=== PATIENT | male | born 1935 | race Caucasian/White ===

== ENCOUNTER 2018-08-15 11:19 | Emergency (ER) | payer OTHER ==
[2018-08-15] MEDS ORDERED: NS 500 ML IV ONE (11:40)
--- NOTE | 2018-08-15 11:44 | EDPHY ---
H & P Time Seen by Provider: 08/15/18 11:29 HPI/ROS: CHIEF COMPLAINT: Weakness HISTORY OF PRESENT ILLNESS: Patient is an 83-year-old male with a history of previous CVA and seizure disorder who presents emergency department after feeling weak. Of note, the patient lost his in February. Since that time he has been feeling depressed. Patient went for a walk this morning and ate breakfast. Upon returning home in sitting in his chair he was unable to get up. He felt weak. He denies any chest pain shortness of breath. He had no dyspnea on exertion. No leg pain or swelling. No recent fevers or chills. No recent illness. REVIEW OF SYSTEMS: 10 systems were reveiwed and are negative with the exception of the elements mentioned in the history of present illness. Past Medical/Surgical History: Includes previous CVA, seizure disorder, afib Social History: Social history: Includes use of alcohol. Denies use of alcohol today. Smoking Status: Never smoked Physical Exam: Vitals noted GENERAL: Tearful, in no acute distress, alert. HEENT: Eyes normal to inspection, normal pharynx, no signs of dehydration. NECK: Normal, supple. RESPIRATORY: Clear to auscultation bilaterally, no rales, rhonchi or wheezing. CVS: Regular rate and rhythm, no rubs, murmurs, or gallops. ABDOMEN: Soft, nontender, nondistended, no organomegaly. BACK: Normal to inspection, no CVA tenderness. SKIN: Normal color, no rash, warm, dry. No pallor. EXTREMITIES: No pedal edema, no calf tenderness, no Homans sign or cords, no joint swelling. NEURO/PSYCH: Alert and oriented, tearful, normal motor sensory exam. Facial droop. The patient states this is from his previous stroke. No other focal deficit. Constitutional: Initial Vital Signs Temperature (C) 36.7 C 08/15/18 11:26 Heart Rate 91 08/15/18 11:26 Respiratory Rate 18 08/15/18 11:26 Blood Pressure 140/87 H 08/15/18 11:26 O2 Sat (%) 96 08/15/18 11:26 O2 Delivery Mode Room Air Allergies/Adverse Reactions: No Known Allergies Allergy (Unverified 08/15/18 11:33) Home Medications: Medication Instructions Recorded Aspirin 81mg (*) 08/15/18 Furosemide 08/15/18 LEVETIRACETAM 08/15/18 Lisinopril 08/15/18 Metoprolol Tartrate 08/15/18 Omeprazole 08/15/18 buPROPion 08/15/18 Medical Decision Making - Diagnostics Imaging Results: Imaging Impressions Chest X-Ray 08/15/18 11:40 Impression: Cardiac silhouette enlargement with no evidence of congestive heart failure or focal infiltrate. Head CT 08/15/18 11:41 Impression: Moderately advanced senescent features, with no acute intracranial abnormality identified on this unenhanced CT evaluation. If there is further clinical concern regarding the patient's symptoms, MR imaging is suggested, if not otherwise contraindicated. Findings were discussed with NAVA BENÍTEZ MD at 12:16, on 08/15/2018. ED Course/Re-evaluation: In the emergency department I discussed possible etiologies with the patient. I answered all his questions. I discussed the case with the diabetes manager. Laboratory studies, EKG, chest x-ray and head CT were ordered. Patient's son was concerned with his alcohol use. EKG: Atrial fibrillation at 87. VPC. CBC and chemistry unremarkable. Troponin was negative. Chest x-ray: No acute disease noted. I discussed results with the patient and family. I answered all her questions. Patient's son requested that case management see him for his alcohol use. The consult was placed. Repeat EKG: Atrial fibrillation at 73. No change. Repeat troponin, negative I discussed the results with the patient and son. I answered all her questions. He was given warnings prior to leaving. He will return worsening symptoms. They were given follow-up with Cardiology. Differential Diagnosis: My differential includes but is not limited to ischemic CVA, hemorrhagic CVA, ACS, acute OR, dysrhythmia, electrolyte abnormality, sugar abnormality, dehydration, alcohol intoxication - Data Points Laboratory Results: Laboratory Results 08/15/18 11:15 08/15/18 11:15 08/15/18 08/15/18 08/15/18 14:31 11:44 11:15 WBC RBC Hgb Hct MCV MCH MCHC RDW Plt Count MPV Neut % (Auto) Lymph % (Auto) [place] % (Auto) Eos % (Auto) Baso % (Auto) Nucleat RBC Rel Count Absolute Neuts (auto) Absolute Lymphs (auto) Absolute Monos (auto) Absolute Eos (auto) Absolute Basos (auto) Absolute Nucleated RBC Immature Gran % Immature Gran # PT 13.3 SEC SEC (12.0-15.0) INR 1.05 (0.83-1.16) APTT 27.1 SEC SEC (23.0-38.0) Sodium Potassium Chloride Carbon Dioxide Anion Gap BUN Creatinine Estimated GFR Glucose Calcium Total Bilirubin Conjugated Bilirubin Unconjugated Bilirubin AST ALT Alkaline Phosphatase POC Troponin I 0.00 ng/mL ng/mL 0.00 ng/mL ng/mL (0.00-0.08) (0.00-0.08) Total Protein Albumin Ethyl Alcohol 08/15/18 08/15/18 08/15/18 11:15 11:15 11:15 WBC 7.96 10^3/uL 10^3/uL (3.80-9.50) RBC 4.58 10^6/uL 10^6/uL (4.40-6.38) Hgb 14.9 g/dL g/dL (13.7-17.5) Hct 45.1 % % (40.0-51.0) MCV 98.5 fL fL (81.5-99.8) MCH 32.5 pg pg (27.9-34.1) MCHC 33.0 g/dL g/dL (32.4-36.7) RDW 13.9 % % (11.5-15.2) Plt Count 215 10^3/uL 10^3/uL (150-400) MPV 10.0 fL fL (8.7-11.7) Neut % (Auto) 64.8 % % (39.3-74.2) Lymph % (Auto) 23.7 % % (15.0-45.0) [place] % (Auto) 8.7 % % (4.5-13.0) Eos % (Auto) 1.4 % % (0.6-7.6) Baso % (Auto) 1.0 % % (0.3-1.7) Nucleat RBC Rel Count 0.0 % % (0.0-0.2) Absolute Neuts (auto) 5.16 10^3/uL 10^3/uL (1.70-6.50) Absolute Lymphs (auto) 1.89 10^3/uL 10^3/uL (1.00-3.00) Absolute Monos (auto) 0.69 10^3/uL 10^3/uL (0.30-0.80) Absolute Eos (auto) 0.11 10^3/uL 10^3/uL (0.03-0.40) Absolute Basos (auto) 0.08 10^3/uL 10^3/uL (0.02-0.10) Absolute Nucleated RBC 0.00 10^3/uL 10^3/uL (0-0.01) Immature Gran % 0.4 % % (0.0-1.1) Immature Gran # 0.03 10^3/uL 10^3/uL (0.00-0.10) PT INR APTT Sodium 139 mEq/L mEq/L (135-145) Potassium 4.7 mEq/L mEq/L (3.5-5.2) Chloride 105 mEq/L mEq/L (97-110) Carbon Dioxide 23 mEq/l mEq/l (22-31) Anion Gap 11 mEq/L mEq/L (6-14) BUN 20 mg/dL mg/dL (7-23) Creatinine 1.5 mg/dL H mg/dL (0.7-1.3) Estimated GFR 45 Glucose 90 mg/dL mg/dL (70-100) Calcium 10.3 mg/dL mg/dL (8.5-10.4) Total Bilirubin 1.5 mg/dL H mg/dL (0.1-1.4) Conjugated Bilirubin 0.4 mg/dL mg/dL (0.0-0.5) Unconjugated Bilirubin 1.1 mg/dL mg/dL (0.0-1.1) AST 32 IU/L IU/L (17-59) ALT 36 IU/L IU/L (21-72) Alkaline Phosphatase 109 IU/L IU/L (38-126) POC Troponin I Total Protein 7.2 g/dL g/dL (6.3-8.2) Albumin 4.5 g/dL g/dL (3.5-5.0) Ethyl Alcohol < 10 mg/dL mg/dL (0-10) Medications Given: Discontinued Medications Sodium Chloride (Ns) 500 mls @ 1,000 mls/hr IV EDNOW ONE PRN Reason: Protocol Stop: 08/15/18 12:09 Last Admin: 08/15/18 12:08 Dose: 500 mls Point of Care Test Results: Chemistry 08/15/18 08/15/18 14:31 11:44 POC Troponin I 0.00 ng/mL ng/mL 0.00 ng/mL ng/mL (0.00-0.08) (0.00-0.08) Departure - Departure Disposition: Home, Routine, Self-Care Clinical Impression: Weakness Condition: Good Instructions: Weakness (ED) Additional Instructions: Return with increasing weakness, chest pain, shortness of breath or any other concerns. I placed a referral for follow-up with Cardiology. If you do not hear from them in the next 48 hr call to make an appointment. Referrals: [facility] [Provider Group] - 2-3 days without fail
[2018-08-15 11:48] LABS: PLATELET COUNT 215 10^3/uL (150-400)
[2018-08-15 11:59] LABS: INR 1.05 (0.83-1.16); PROTIME(PATIENT) 13.3 SEC (12.0-15.0)
--- NOTE | 2018-08-15 14:48 | CPEKG ---
Test Reason : OPEN Blood Pressure : / mmHG Vent. Rate : 087 BPM Atrial Rate : 000 BPM P-R Int : 192 ms QRS Dur : 093 ms QT Int : 375 ms P-R-T Axes : 000 022 -10 degrees QTc Int : 451 ms Atrial fibrillation Ventricular premature complex Nonspecific T abnormalities, diffuse leads Confirmed by Nava Acevedo ([id number]) on 08/15/2018 2:47:31 PM Referred By: NAVA ACEVEDO Confirmed By:Nava Acevedo
[2018-08-15 15:05] VITALS: BP 160/87
--- NOTE | 2018-08-15 17:28 | ASMTCMCOM ---
CM Note CM Note Notes: Requested to speak to pt re:ETOH abuse resources, mental health resources, etc. Spoke w/pt and his son, Marcus, at bedside. Pt had been living in [place] up until a couple months ago. Pt recently was at [facility] for about a month and then discharged to [facility] about a week ago. Marcus states that the pt did not drink alcohol while he was but after 3 days of returning home, it appeared that the pt drank several boxes of wine over the past 4 days. Pt states he has been drinking a moderate amount daily since he was about 15 yrs old. Pt became tearful when talking about losing his of >60 yrs in Feb 2018. Pt states he has not sought counseling or supportive grief services. Marcus states the the hospice company for his mother (pts ) did reach out to the pt for grief support but pt was resistant/hesitant to accept help. CM provided various resources including: [facility] various services (27/10 crisis center, counseling and substance abuse therapy and especially their Senior Reach program); [facility]; AA and other support group info; [facility]; etc. CM printed out [facility] the Intake / Referral Form and instructions on how to complete it and submit it to [facility]. CM also encouraged them to reach out to [facility] at the [facility] during their Walk-In registration hours: M/W/F from 8:30-2p. Located within [facility] pt is followed by [facility]ington Humphrey's primary care physician group, [facility], but [place] states the pt has not been rounded on since discharging from . Located within [facility] pt has been receiving OT/PT through [facility] services. Pt to followup with [facility] next week. This CM will followup with [facility]'s Supermarket Manager tomorrow. Date Signed: 08/15/2018 05:27 PM Electronically Signed By:Klaudia Parnell RN
--- NOTE | 2018-08-16 20:20 | ASMTCMCOM ---
CM Note CM Note Notes: 1700: With pt and pt's son, Marcus's permission from yesterday's ED visit, this CM followed up with Liz Oneill ([phone]) and spoke w/ Estrada, [employer]p [employer] Senior Bioinformatics Specialist. Dwight said their [employer] Weight And Strength Tester, Ying, was gone for the day but that he was familiar with the pt and could relay info to Ying. We discussed pt's ED visit yesterday and his need for assistance w/outpatient followup for ETOH abuse treatment resources, support groups, mental health counseling for grief (especially [facility]' Senior Reach program), etc. Estrada states that he knows the pt's family have been reaching out to Ying and they are working w/the PCP group to look into additional support and assistance, etc. Estrada states he will relay info and have Ying reach out to ED CM if she has any further questions/concerns. Date Signed: 08/16/2018 08:19 PM Electronically Signed By:Klaudia Parnell RN
--- NOTE | 2018-08-16 21:13 | CPEKG ---
Test Reason : OPEN Blood Pressure : / mmHG Vent. Rate : 073 BPM Atrial Rate : 084 BPM P-R Int : 075 ms QRS Dur : 097 ms QT Int : 385 ms P-R-T Axes : 000 007 -14 degrees QTc Int : 425 ms Atrial fibrillation Ventricular premature complex Nonspecific T abnormalities, diffuse leads Confirmed by Latha Acevedo ([id number]) on 08/16/2018 9:10:55 PM Referred By: Latha Acevedo Confirmed By:Latha Acevedo
== END 2018-08-15 15:26 | disposition home or self-care (01) ==
DX: R53.1 Weakness (principal); R56.9 Unspecified convulsions; I48.91 Unspecified atrial fibrillation; Z86.73 Personal history of transient ischemic attack (TIA), and cerebral infarction without residual deficits
CPT/HCPCS: 84484-ER; G0480